=== PATIENT | male | born 1995 | race African-American/Black ===

== ENCOUNTER 2025-07-10 01:06 | Inpatient (IN) | payer OTHER ==
[2025-07-10] MEDS ORDERED: DICYCLOMINE HCL 10 MG CAPSULE PO PRN (01:50)
[2025-07-10] MEDS ORDERED: BENZONATATE 200 MG CAPSULE PO PRN (01:50)
[2025-07-10] MEDS ORDERED: LOPERAMIDE HCL 2 MG CAPSULE PO PRN (01:50)
[2025-07-10] MEDS ORDERED: IBUPROFEN 400 MG TABLET (FP) PO PRN (01:50)
[2025-07-10] MEDS ORDERED: guaiFENesin 600 MG TABLET.ER (FP) PO PRN (01:50)
[2025-07-10] MEDS ORDERED: IBUPROFEN 600 MG TABLET (FP) PO PRN (01:50)
[2025-07-10] MEDS ORDERED: NALOXONE (NARCAN) HCL 4 MG/0.1 ML SPRAY NS PRN (01:50)
[2025-07-10] MEDS ORDERED: MAG HYDROX/AL HYDROX/SIMETH 30 ML UNIT-DOSE CUP PO PRN (01:50)
[2025-07-10] MEDS ORDERED: hydrOXYzine PAMOATE 25 MG CAPSULE (FP) PO PRN (01:50)
[2025-07-10] MEDS ORDERED: METHOCARBAMOL 500 MG TABLET PO PRN (01:50)
[2025-07-10] MEDS ORDERED: POLYETHYLENE GLYCOL (HEALTHYLAX) 3350 17 GM PACKET PO PRN (01:50)
[2025-07-10] MEDS ORDERED: BISMUTH SUBSALICYLATE 524 MG/30 ML PO PRN (01:50)
[2025-07-10] MEDS ORDERED: NICOTINE POLACRILEX 2 MG GUM BUC PRN (01:50)
[2025-07-10] MEDS ORDERED: ONDANSETRON *ODT* 4 MG TABLET SL PRN (01:50)
[2025-07-10] MEDS ORDERED: BENZOCAINE/MENTHOL (CHLORASEPTIC ) LOZENGE MM PRN (01:50)
[2025-07-10] MEDS ORDERED: MAGNESIUM HYDROX 2400MG/30ML ORAL SUSPENSION 30 ML CUP PO PRN (01:50)
[2025-07-10] MEDS ORDERED: ALBUTEROL SO4 HFA INHALER IH PRN (01:56)
[2025-07-10] MEDS: levETIRAcetam 500 MG TABLET (FP) PO SCH (09:41)
[2025-07-10] MEDS: NICOTINE 14 MG/24 HOURS TOPICAL PATCH TD SCH (09:41)
[2025-07-10] MEDS: NALTREXONE HCL 50 MG TABLET PO ONE (09:42)
[2025-07-10] MEDS: PRENATAL VITAMINS W/ FOLIC ACID TABLET (FP) PO SCH (09:42)
[2025-07-10] MEDS: ACETAMINOPHEN 325 MG TABLET (FP) PO PRN (19:23)
[2025-07-10] MEDS: THIAMINE 100 MG TABLET PO SCH (21:49)
[2025-07-10] MEDS: MELATONIN 5 MG TABLETS PO SCH (21:49)
[2025-07-11] MEDS: NALTREXONE HCL 50 MG TABLET PO SCH (09:59)
[2025-07-11 10:54] VITALS: TEMP 97.5
[2025-07-11 11:47] LABS: GLUCOSE,RANDOM 83.0 mg/dL (74-106)
[2025-07-11 11:48] LABS: TOT PROT 6.6 g/dl (6.4-8.2)
[2025-07-11 11:49] LABS: CO2 18.0 mmol/L (21-32)
[2025-07-11 11:50] LABS: ALK PHOS 68.0 U/L (40-150)
[2025-07-11 11:53] LABS: CREATININE 1.22 mg/dL (0.55-1.3); SGOT/AST 41.0 U/L (5-34); SGPT/ALT 29.0 U/L (0-55)
[2025-07-11 14:05] VITALS: BP 125/77; PULSE 57; RESP 16
== END 2025-07-11 14:07 | disposition home or self-care (01) | DRG 775 ==
LOC: Y3N 01:06
PROVIDERS: ADMIT Allergy & Immunology; ATTEND Allergy & Immunology
PROC: HZ2ZZZZ Detoxification Services for Substance Abuse Treatment (ICD-10-PCS; principal; 2025-07-10)
DX: F10.20 Alcohol dependence, uncomplicated (principal); F17.210 Nicotine dependence, cigarettes, uncomplicated; F42.9 Obsessive-compulsive disorder, unspecified; J45.909 Unspecified asthma, uncomplicated; R56.9 Unspecified convulsions
CPT/HCPCS: 36415; 80053; 80307; 82140; 85027; 86780